=== PATIENT | male | born 1930 | race Caucasian/White ===

== ENCOUNTER 2016-08-02 16:03 | Inpatient (IN) | payer MEDICARE, BC ==
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
--- NOTE | ~2016-08-02 | HP ---
History And Physical [place] [id number] [facility] [place]. [address] NAME: SHELBY OKEEFE : 28 STATUS : ADM IN [facility]#: [id number] AGE: 86 ADM/REG DATE : 08/02/16 MR#: [id number] REPORT SERV DATE: 08/02/16 DICTATED BY: DICKSON HEALY DATE: 08/02/16 REPORT STATUS : Draft TRANSCRIBED BY: MODL DATE: 08/02/16 DATE OF ADMISSION: 08/02/2016 HISTORY OF PRESENT ILLNESS: Mr. Okeefe is an 86-year-old patient who came into the ER as he was having increasing difficulty breathing progressively in the last few weeks. The patient also states that his swelling in his lower extremities also got worse and the swelling slowly started moving up and he also has swelling in his abdominal area now and this is making him even more short of breath and so he decided to come in. His son brought him into the ER. The patient states that he is chronically followed by the [place] physician and he has been referred to a stock grader several times, but because of the "system", the patient has not been able to get an appointment with the stock grader. Specifically when I asked the patient, he denies any chest pain, just states that his chest feels tight in the center and he has difficulty breathing and he feels like he is fluid overloaded, but denies any specific chest pain. He denies any other symptoms whatsoever. The patient denies any headaches, trouble swallowing. Denies any nausea, vomiting, abdominal pain. Does have abdominal distention, but no pain. He denies any dysuria, hematuria, blood in stool this time. He has no other symptoms other than progressive shortness of breath and increasing swelling starting from his legs upwards in the last few weeks. PAST MEDICAL HISTORY: Significant for questionable coronary artery disease-there is a midline scar, but I am not sure at this time if the patient has had a bypass graft or was this surgery performed for aortic valve replacement. It is to be noted that the patient has a [facility] mechanical aortic valve for which the patient is on chronic anticoagulation therapy with Coumadin. His other problems include diabetes mellitus for which he takes oral medications, hypertension, and history of some sort of cardiac arrhythmia I understand, for which he takes verapamil. [facility] [facility], the only cardiac arrhythmia that I could find was a first degree AV block. However, the patient is chronically on verapamil 240 mg a day which is kind of contradictory to the first-degree AV block history. Anyhow, we will adjust medications on the patient's current heart rate. The patient also has a history of GI bleed in the past. Otherwise, the patient is fairly healthy for someone who is 86 years old. PAST MEDICAL HISTORY: As above. FAMILY HISTORY: Noncontributory. SOCIAL HISTORY: The patient does not smoke or drink or use any illicit drugs. He is fairly independent and is able to take care of himself and gets around pretty well for an 86-year- old. He states that, his main problem has been swelling in his lower extremity because he has chronic venous insufficiency and chronic lymphedema, for which he gets Marco Antonio bandage wraps every other day by Home Health through the [place] system. He states this is the only limiting factor that limits him from walking. Of course in the last few weeks, it also been fluid overload and shortness of breath. HOME MEDICATIONS AND ALLERGIES: Include the following, the patient is allergic to zinc oxide History And Physical [address] [address] NAME: SHELBY OKEEFE : 28 STATUS : ADM IN [facility]#: [id number] AGE: 86 ADM/REG DATE : 08/02/16 MR#: [id number] REPORT SERV DATE: 08/02/16 DICTATED BY: DICKSON HEALY DATE: 08/02/16 REPORT STATUS : Draft TRANSCRIBED BY: KOKI DATE: 08/02/16 and his home medications include Proventil HFA, Lipitor 10 mg once a day, vitamin D3, digoxin 0.125 mg once a day, Cardura 2 mg once a day, ferrous sulfate 325 mg p.o. b.i.d., folic acid 1 mg once at bedtime, Lasix 20 mg once a day, Glucotrol 5 mg once a day, HCTZ 25 mg Monday, Monday, and Monday, lisinopril 10 mg p.o. b.i.d., Spiriva inhaler, Prilosec 20 mg once a day, Paxil 60 mg p.o. at bedtime, Mirapex 1.5 mg p.o. at bedtime, verapamil ER 240 mg once a day, and Coumadin 5 mg on all week days except on Mondays and Fridays when he takes 7.5 mg. PHYSICAL EXAMINATION: GENERAL: On examination, the patient is alert, oriented, and appears quite comfortable at rest. VITAL SIGNS: Skin and mucous membranes appear well hydrated and his vital signs show that his blood pressure is 128/62, temperature afebrile, pulse is 79 per minute, but when I listened again his pulse seems to be somewhat irregular and I got his pulse rate to be in the 58 to 60 range. His respirations are 24 per minute, and his oxygen saturation is 95% on 2 L. HEENT: Unremarkable. NECK: There is JVD, but no thyromegaly. There is no facial droop. CARDIOVASCULAR SYSTEM: S1, S2 appreciated. The patient is definitely bradycardic and his pulse rate now is anywhere from 60 to 65 per minute. I do hear a mechanical [facility] aortic valve upon auscultation. There are no murmurs appreciated at this time. RESPIRATORY SYSTEM: A few bibasilar rales are appreciated, but no rhonchi noted. ABDOMINAL: Ascites noted. There is no tenderness. There is no organomegaly. Bowel sounds are appreciated. EXTREMITIES: There is bilateral 2+ pedal edema. However, both his legs are wrapped in Marco Antonio bandages as the patient states that he has chronic leakage or seepage of fluid from his lower extremities and he has chronic lymphedema. His Marco Antonio bandaged up to all the way to his knee level and I did not attempt removing these Marco Antonio bandages. I did examine his toes. He is able to wiggle both his toes and his toes appear fairly pink. Pedal pulses are felt. NEUROLOGICAL: No deficits. PSYCHIATRIC: Normal. MUSCULOSKELETAL: No acute pain or swelling or warmth in any of the major joints. LABORATORY DATA: Labs that I have on this patient include the following. His CBC shows WBC 6.4, hemoglobin 11.5, hematocrit 35.5, normal platelets and INR of 3.5. His electrolytes are normal. BUN is 25, creatinine is 1.1. Troponin I is less than 0.02. BNP is only 199 surprisingly. His chest x-ray shows cardiomegaly, status post CABG, without any focal airspace disease. His hepatic function profile shows an albumin of 3.4, and other than that, essentially within normal LFTs. 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 For this, we will admit the patient under cardiac telemetry and place a Rooney catheter as the patient has not been able to urinate even after a couple hours of giving him IV Lasix. He was already given IV Lasix in the ER. Hence, we will place a Rooney catheter and aggressively diurese him with Bumex 1 mg every eight hours for at least the first 24 hours. We will get a cardiology consult and we will also check a repeat 2D echocardiogram on this patient. History And Physical [address] [address] NAME: SHELBY OKEEFE : 28 STATUS : ADM IN [facility]#: [id number] AGE: 86 ADM/REG DATE : 08/02/16 MR#: [id number] REPORT SERV DATE: 08/02/16 DICTATED BY: DICKSON HEALY DATE: 08/02/16 REPORT STATUS : Draft TRANSCRIBED BY: KOKI DATE: 08/02/16 We will recheck a BNP in the morning. His EKG shows first-degree AV block, and hence we will reduce his verapamil to 120 mg once a day. Further adjustments on his verapamil and digoxin will be according to Cardiology's suggestions. His other problems include hypertension, diabetes mellitus, for which his home medications will be continued. For his diabetes, we will place him on SSI level 1 and Accu-Cheks before meals and at bedtime and an 1800 kilocalorie ADA diet. Regarding his chronic anticoagulation with Coumadin for the mechanical [facility] aortic valve, we will hold Coumadin only for today as his INR is 3.5. We will resume his Coumadin at 5 mg tomorrow, 08/03/2016 with the intention of keeping his INR between 2.5 and 3.5 at this time. Other than that, the patient is stable for admission and we will follow this patient. ALISON/KOKI Dickson Healy M.D. / [id number] CC: Dickson Healy M.D.
--- NOTE | ~2016-08-02 | DS ---
Discharge Summary [facility] [address] [place]. [address] NAME: SHELBY OKEEFE : 28 STATUS : ADM IN [facility]#: [id number] AGE: 86 ADM/REG DATE : 08/02/16 MR#: [id number] REPORT SERV DATE: 08/04/16 DICTATED BY: DICKSON HEALY DATE: 08/04/16 REPORT STATUS : Draft TRANSCRIBED BY: MODL DATE: 08/04/16 ADMISSION DATE: 08/02/2016 DISCHARGE DATE: 08/04/2016 CONDITION ON DISCHARGE: Stable. DISPOSITION: Discharged to home. ADVICE ON DISCHARGE: To follow up with his coding advisor, Dr. Hyatt in the next two to three weeks and PCP within the next one to two weeks. MEDICATIONS: The following changes have been made in his medications upon discharge to home. 1. His Coumadin has been reduced to 5 mg once a day Monday through Monday, all seven days a week. The patient used to be taking 7.5 mg on two days a week before this. His INR is supratherapeutic and his stool occult blood is trace positive and hence the reason for changing the Coumadin. He absolutely needs Coumadin because he has a mechanical aortic valve and his INR needs to stay above 2.5. 2. Next change in the medication includes increase in Lasix to 40 mg once a day instead of 20 mg once a day and potassium/K-Dur 10 mEq once a day. 3. His verapamil has been stopped. His digoxin however will be restarted, but this is up to his coding advisor Dr. Hyatt to continue this or not when he sees him in the next few weeks. 4. The other change in his medication also includes that all his other medications will be continued like the way they are. DIAGNOSES ON DISCHARGE: 1. Acute shortness of breath secondary to flash pulmonary edema/volume overload, which could be secondary to multiple reasons. However, his 2D echocardiogram showed an excellent LVEF of 60%. Other than this, he does have an artificial or mechanical aortic valve, for which he needs treatment with Coumadin for life. 2. Volume overload could also have been because of cor pulmonale as the patient does have COPD. 3. Type 2 diabetes mellitus which is stable. 4. Hypertensive cardiovascular disease which is stable. 5. Hypoalbuminemia-rule out nephrotic syndrome. For this, a 24-hour urine protein test has been ordered. 6. Atrial fibrillation with slow ventricular response-for this the patient will continue anticoagulation. More than this, the patient needs anticoagulation for a mechanical aortic valve. The ventricular response rate is excellent right now. BRIEF HOSPITAL COURSE: The patient is a very pleasant 86-year-old male patient, who is quite active for his age. He does have problems with chronic lymphedema in both lower extremities, for which he goes to Wound Care that wraps him up with gauze and Marco Antonio bandages every other day. With this, he is doing great. He came in anyway with shortness of breath and for details please see H and P. He was admitted with acute congestive heart failure/volume overload. He was placed on diuresis and his digoxin and verapamil were Discharge Summary [address] [address] NAME: SHELBY OKEEFE : 28 STATUS : ADM IN [facility]#: [id number] AGE: 86 ADM/REG DATE : 08/02/16 MR#: [id number] REPORT SERV DATE: 08/04/16 DICTATED BY: DICKSON HEALY DATE: 08/04/16 REPORT STATUS : Draft TRANSCRIBED BY: KOKI DATE: 08/04/16 discontinued. Cardiology consult was obtained. 2D echocardiogram showed an ejection fraction of 60% and otherwise normal except for mild diastolic dysfunction if at all any. The patient may have hypertensive cardiac disease. The patient may also have an element of cor pulmonale; however, the echocardiogram did not show any significant abnormalities. 1. During his hospitalization, the patient improved significantly with the above measures and on 05/07/2016, he was stable to go home. He is able to walk around without any assistance, able to eat and keep his food down, and has no new complaints. His shortness of breath has resolved. But, he will continue to get his wound care with Marco Antonio bandage wrapping on a regular basis as he does before. His medication changes have been dictated above. 2. Most recent labs on this patient include the following. CBC on the day of discharge shows WBC 4.9, hemoglobin 12.2, hematocrit 36.9, platelet count of 186. INR is 3.1 today. Hence, the patient is advised to not take Coumadin today, but resume Coumadin at 5 mg once a day for all seven days a week starting tomorrow, 08/05/2016. 3. His electrolyte profile shows sodium 142, potassium 3.9, BUN 21, creatinine 1.26. 4. His blood sugar control has been great during this hospitalization. Digoxin level is normal at 0.8, for which reason he will actually continue taking the home dose of digoxin at this time as he is concerned about that. 5. His BNP came back elevated at 232.6, of course reflecting volume overload. 6. His 2D echocardiogram showed an LVEF of 60%. 7. At this time, since we were wondering as to why he had volume overload/shortness of breath to rule out nephrotic syndrome, his 24-hour urine protein has been ordered. Once this is done, he will be sent home, but I may not have the results by the time of discharge. His albumin is slightly low at 3.4, but not terribly low either, so hence I even doubt nephrotic syndrome at this time. If at all any it could be flash pulmonary edema/volume overload. Hence, the patient has been advised a low-sodium diet and limit fluid intake to 1.5 L a day. The patient is being sent home in stable condition and I have spent about 40 minutes in coordinating discharge care of this patient. DICTATED BY: Paty Zazueta/KOKI Dickson Healy M.D. / [id number] CC: Dickson Healy M.D.
[2016-08-02 14:44] LABS: BASOPHILS 0.5 %; BASOPHILS ABSOLUTE 0.03 10/3/uL (0.0-0.16); EOSINOPHILS 1.4 %; EOSINOPHILS ABSOLUTE 0.09 10/3/uL (0.0-0.53); HEMOGLOBIN 11.5 g/dL (13.6-17.8); IMMATURE GRANULOCYTES 0.6 %; IMMATURE GRANULOCYTES ABSOLUTE 0.04 10/3/uL (0.0-0.11); LYMPHOCYTES ABSOLUTE 1.16 10/3/uL (0.67-4.30); MEAN CORPUS HGB CONC 32.4 g/dL (32.0-36.0); MEAN CORPUSCULAR HEMOGLOB 28.1 pg (26.0-34.0); MEAN CORPUSCULAR VOLUME 86.8 fL (80-100); MEAN PLATELET VOLUME 10.1 fL (9.2-13.0); MONOCYTES 16.1 %; MONOCYTES ABSOLUTE 1.04 10/3/uL (0.21-1.20); NEUTROPHILS 63.4 %; NEUTROPHILS ABSOLUTE 4.08 10/3/uL (2.02-8.40); PLATELET COUNT 190 10/3/uL (150-400); RBC DISTRIBUTION WIDTH 17.2 % (12.0-16.0); RED CELL COUNT 4.09 10/6/uL (4.7-6.1); WHITE BLOOD CELLS 6.4 10/3/uL (4.5-10.5)
[2016-08-02 14:45] LABS: HEMATOCRIT 35.5 % (40.0-51.0); MANUAL DIFF NO %
[2016-08-02 14:53] LABS: INTERNATIONAL NORMAL RATI 3.5 UNITS (-); PARTIAL THROMBO TIME 70.3 SEC (22.5-37.2)
[2016-08-02 14:54] LABS: PROTIME (NOT ORD) 34.9 SEC (12.0-14.5)
[2016-08-02 15:02] LABS: BUN (BLOOD UREA NITROGEN) 25 MG/DL (6-23); CALCIUM, SERUM 9.1 MG/DL (8.5-10.4); CHEST PAIN PROFILE TAT 0 Hrs 22 Mins; CHLORIDE, SERUM 110 MMOL/L (96-112); CO2 (CARBON DIOXIDE) 32 MMOL/L (24-34); CREATININE 1.18 MG/DL (0.70-1.30); GFR AFRICAN AMERICAN 64 ML/MIN (>=60); GFR NON AFRICAN AMERICAN 55 ML/MIN (>=60); SODIUM, SERUM 144 MMOL/L (135-148); TROPONIN I <0.02 NG/ML (<0.05)
[2016-08-02 15:07] LABS: GLUCOSE, SERUM 42 MG/DL (60-99)
[~2016-08-02 16:03] MED LIST: *UNABLE3; ACET500CAP PO; ASMANEX INH; C25 PO; C5 PO; CAPOTEN100 MG PO; COUMADIN4 MG; COUMADIN7.5 MG PO; CRESTOR40 MG PO; DSS PO; FLEX PO; FOLIC PO; FORADIL INH; GLUCOTRO10 PO; GLUCOTROL5 PO; HYDROCHLOROT25 MG PO; K500 PO; L20 PO; LIPITOR10 PO; MIRAPEX0.75 MG PO; MIRAPEX1.5 MG PO; NASAREL29 MCG NAS; NEUR300 PO; NORCO1 TAB PO; PAX20 PO; PAXIL30 MG PO; PAXIL40 MG PO; PRILO PO; PRIN10 PO; PRIN20 PO; PROAIR HFA INH; PROVENTIL HFA6.7 GM IH; STRIVERDI INH; VERELAN240 MG PO; VERELANPM2 PO; VITAMIN D31000 UNIT PO; [UNRECOGNIZED DRUG - CODE] IN
[2016-08-02] MEDS ORDERED: PROVHFA INH (16:54)
[2016-08-02] MEDS ORDERED: LIPITOR10 PO (16:54)
[2016-08-02] MEDS ORDERED: VITAMIN D31000 UNIT PO (16:55)
[2016-08-02] MEDS ORDERED: L20 PO (16:56)
[2016-08-02] MEDS ORDERED: FOLIC PO (16:56)
[2016-08-02] MEDS ORDERED: LAN125 PO (16:56)
[2016-08-02] MEDS ORDERED: CARDU2 PO (16:56)
[2016-08-02] MEDS ORDERED: FERROUS SULF325 M1 PO (16:56)
[2016-08-02] MEDS ORDERED: GLUCOTROL5 PO (16:57)
[2016-08-02] MEDS ORDERED: HYDROCHLOROT25 MG PO (16:57)
[2016-08-02] MEDS ORDERED: PRIN10 PO (16:57)
[2016-08-02] MEDS ORDERED: NASONEX NAS (16:58)
[2016-08-02] MEDS ORDERED: PRILO PO (16:59)
[2016-08-02] MEDS ORDERED: STIOLTO RESPIMAT4 GM INH (16:59)
[2016-08-02] MEDS ORDERED: PAXIL30 MG PO (16:59)
[2016-08-02] MEDS ORDERED: MIRAPEX1.5 MG PO (17:00)
[2016-08-02] MEDS ORDERED: TRIAMCINOLONE454 GM TOP (17:00)
[2016-08-02] MEDS ORDERED: COUMADIN7.5 MG PO (17:01)
[2016-08-02] MEDS ORDERED: VITAMIN B PO (17:01)
[2016-08-02] MEDS ORDERED: ISOPTIN SR240 MG PO (17:01)
[2016-08-02] MEDS ORDERED: C5 PO (17:02)
[2016-08-02 18:01] LABS: ALBUMIN 3.4 G/DL (3.5-5.0); DIRECT BILIRUBIN 0.2 MG/DL (0.0-0.4); INDIRECT BILIRUBIN(NOT ORDER) 0.2 MG/DL (0.1-0.9); TOTAL BILIRUBIN 0.4 MG/DL (0-1.2); TOTAL PROTEIN 6.8 G/DL (6.0-8.5)
[2016-08-02 22:46] LABS: TROPONIN I <0.02 NG/ML (<0.05)
[2016-08-03 01:37] LABS: ASCORBIC ACID (UR NOT ORDER) NEG (NEG); BILIRUBIN, URINE NEGATIVE (NEG); KETONE, URINE NEGATIVE (NEG); LEUKOCYTE ESTERASE(NOT OR NEG (NEG); WBC (NOT ORDERED) (RFLEX) 1 (0-5)
[2016-08-03 06:42] LABS: BASOPHILS 0.5 %; BASOPHILS ABSOLUTE 0.03 10/3/uL (0.0-0.16); EOSINOPHILS 2.7 %; EOSINOPHILS ABSOLUTE 0.15 10/3/uL (0.0-0.53); HEMATOCRIT 34.4 % (40.0-51.0); HEMOGLOBIN 11.1 g/dL (13.6-17.8); IMMATURE GRANULOCYTES 0.4 %; IMMATURE GRANULOCYTES ABSOLUTE 0.02 10/3/uL (0.0-0.11); LYMPHOCYTES 16.1 %; LYMPHOCYTES ABSOLUTE 0.91 10/3/uL (0.67-4.30); MANUAL DIFF NO %; MEAN CORPUS HGB CONC 32.3 g/dL (32.0-36.0); MEAN CORPUSCULAR HEMOGLOB 28.5 pg (26.0-34.0); MEAN CORPUSCULAR VOLUME 88.4 fL (80-100); MEAN PLATELET VOLUME 10.3 fL (9.2-13.0); MONOCYTES 12.2 %; MONOCYTES ABSOLUTE 0.69 10/3/uL (0.21-1.20); NEUTROPHILS 68.1 %; NEUTROPHILS ABSOLUTE 3.85 10/3/uL (2.02-8.40); PLATELET COUNT 167 10/3/uL (150-400); RBC DISTRIBUTION WIDTH 17.3 % (12.0-16.0); RED CELL COUNT 3.89 10/6/uL (4.7-6.1); WHITE BLOOD CELLS 5.7 10/3/uL (4.5-10.5)
[2016-08-03 06:49] LABS: INTERNATIONAL NORMAL RATI 3.7 UNITS (-); PROTIME (NOT ORD) 36.4 SEC (12.0-14.5)
[2016-08-03 06:58] LABS: BUN (BLOOD UREA NITROGEN) 27 MG/DL (6-23); CHLORIDE, SERUM 108 MMOL/L (96-112); CO2 (CARBON DIOXIDE) 30 MMOL/L (24-34); CREATININE 1.35 MG/DL (0.70-1.30); GFR AFRICAN AMERICAN 54 ML/MIN (>=60); GFR NON AFRICAN AMERICAN 47 ML/MIN (>=60); GLUCOSE, SERUM 95 MG/DL (60-99); SODIUM, SERUM 145 MMOL/L (135-148)
[2016-08-04 06:42] LABS: BASOPHILS 1.2 %; BASOPHILS ABSOLUTE 0.06 10/3/uL (0.0-0.16); EOSINOPHILS 3.3 %; EOSINOPHILS ABSOLUTE 0.16 10/3/uL (0.0-0.53); HEMATOCRIT 36.9 % (40.0-51.0); HEMOGLOBIN 12.2 g/dL (13.6-17.8); IMMATURE GRANULOCYTES 0.8 %; IMMATURE GRANULOCYTES ABSOLUTE 0.04 10/3/uL (0.0-0.11); LYMPHOCYTES 21.2 %; LYMPHOCYTES ABSOLUTE 1.04 10/3/uL (0.67-4.30); MEAN CORPUS HGB CONC 33.1 g/dL (32.0-36.0); MEAN CORPUSCULAR VOLUME 87.9 fL (80-100); MEAN PLATELET VOLUME 10.1 fL (9.2-13.0); MONOCYTES ABSOLUTE 0.64 10/3/uL (0.21-1.20); NEUTROPHILS 60.5 %; NEUTROPHILS ABSOLUTE 2.97 10/3/uL (2.02-8.40); PLATELET COUNT 186 10/3/uL (150-400); RBC DISTRIBUTION WIDTH 16.5 % (12.0-16.0); WHITE BLOOD CELLS 4.9 10/3/uL (4.5-10.5)
[2016-08-04 06:44] LABS: MANUAL DIFF NO %
[2016-08-04 06:47] LABS: INTERNATIONAL NORMAL RATI 3.1 UNITS (-); PROTIME (NOT ORD) 31.5 SEC (12.0-14.5)
[2016-08-04 06:53] LABS: BUN (BLOOD UREA NITROGEN) 21 MG/DL (6-23); CALCIUM, SERUM 9.1 MG/DL (8.5-10.4); CHLORIDE, SERUM 105 MMOL/L (96-112); CO2 (CARBON DIOXIDE) 32 MMOL/L (24-34); CREATININE 1.26 MG/DL (0.70-1.30); GFR AFRICAN AMERICAN 59 ML/MIN (>=60); GFR NON AFRICAN AMERICAN 51 ML/MIN (>=60); GLUCOSE, SERUM 111 MG/DL (60-99); POTASSIUM, SERUM 3.9 MMOL/L (3.5-5.3); SODIUM, SERUM 142 MMOL/L (135-148)
[2016-08-04] MEDS ORDERED: L40 PO (12:18)
[2016-08-04] MEDS ORDERED: KDUR20 PO (12:19)
[2016-08-04] MEDS ORDERED: C5 PO (12:41)
[2016-08-04 16:17] LABS: T.V. 24HR UR (NOT ORD) 4800 ML (600-1600)
[2016-08-04 16:23] LABS: T.P. URINE (NOT ORDER RAN < 5.0 MG/DL; T.P.24HR UR (NOT ORDER) < 240 MG/24HR (40-150)
== END 2016-08-04 15:53 | disposition home or self-care (01) | DRG 291 ==
LOC: ER 16:03 → 7NO 18:46
PROVIDERS: Emergency Medicine
DX: I13.0 Hypertensive heart and chronic kidney disease with heart failure and stage 1 through stage 4 chronic kidney disease, or unspecified chronic kidney disease (principal); I50.43 Acute on chronic combined systolic (congestive) and diastolic (congestive) heart failure; E11.22 Type 2 diabetes mellitus with diabetic chronic kidney disease; I27.81 Cor pulmonale (chronic); I44.0 Atrioventricular block, first degree; N18.3 Chronic kidney disease, stage 3 (moderate); I87.2 Venous insufficiency (chronic) (peripheral); I89.0 Lymphedema, not elsewhere classified; E87.70 Fluid overload, unspecified; H91.90 Unspecified hearing loss, unspecified ear; J44.9 Chronic obstructive pulmonary disease, unspecified; I48.91 Unspecified atrial fibrillation; Z79.84 Long term (current) use of oral hypoglycemic drugs; Z89.022 Acquired absence of left finger(s); Z95.1 Presence of aortocoronary bypass graft; Z95.2 Presence of prosthetic heart valve; Z79.01 Long term (current) use of anticoagulants
CPT/HCPCS: 71010; 80048; 80076; 80162; 81001; 81050; 82272; 82962; 83735; 83880; 84156; 84443; 84484; 85025; 85610; 85730; 93005; 96374; 99285; A9270-GY; C8929; J1940; Q9957